=== PATIENT | female | born 2005 ===

== ENCOUNTER 2024-02-27 14:48 | Emergency (ER) | payer OTHER, SELFPAY ==
[2024-02-27 15:25] VITALS: BP 117/86; PULSE 114; RESP 16; TEMP 36.7; O2SAT 99
--- NOTE | 2024-02-27 16:29 | ED.URI ---
HPI - URI/Sore Throat General Chief Complaint: Upper Respiratory Infection Stated Complaint: Cough/Nausea/Ear Pain Time Seen by Provider: 02/27/24 16:18 Source: patient and RN notes reviewed Mode of arrival: ambulatory Limitations: no limitations History of Present Illness HPI Narrative: Mother presents with patient today complaining of headache, productive cough, fatigue, rhinorrhea. Symptoms began a few days ago. Denies fever, shortness of breath. Currently rates her pain 4/10 and has been taking Advil with minimal relief. Patient finished course of Augmentin approximately 1 week ago for sinusitis. Related Data Home Medications ?Medication ?Instructions ?Recorded ?Confirmed ?Last Taken ?Type duloxetine 30 mg capsule,delayed 30 mg PO DAILY 02/27/24 02/27/24 Unknown History release serdexmethylphenidate 52.3 1 tablet PO ONCE 02/27/24 02/27/24 Unknown History mg-dexmethylphenidate 10.4 mg capsule (Azstarys) tirzepatide 5 mg/0.5 mL 5 mg subcut WEEKLY 02/27/24 02/27/24 Unknown History subcutaneous pen injector (Mounjaro) Allergies Allergy/AdvReac Type Severity Reaction Status Date / Time No Known Allergies Allergy Verified 02/27/24 15:23 Review of Systems Review of Systems: CONSTITUTIONAL: Denies body aches, fever, chills, or sweats.+ fatigue EYES: Denies visual changes, redness, or discharge. ENT: Denies congestion, sore throat, or otalgia.+ rhinorrhea CARDIOVASCULAR: Denies chest pain, palpitations, or edema. RESPIRATORY: Denies dyspnea.+ cough GASTROINTESTINAL: Denies abdominal pain, nausea, vomiting, or diarrhea. GENITOURINARY: Denies dysuria or hematuria. SKIN: Denies rash, itching, or wounds. MUSCULOSKELETAL: Denies back pain, joint pain, or myalgia. NEUROLOGIC: Denies numbness, tingling, or weakness.+ headache PSYCH: Denies depression or anxiety. PMFSH Comments At time of signature, I have reviewed and agree with nursing past medical, surgical, social and family history unless otherwise noted. Please see nursing chart for further information. There is no relevant family history pertinent to the presenting complaint Exam Narrative: GENERAL: Mildly ill-appearing, well-nourished, and in no acute distress. HEAD: Normocephalic, atraumatic. EYES: EOMI. No redness or drainage. Conjunctivae normal. ENT: Mucous membranes pink and moist. Nares clear. + rhinorrhea. TMs normal bilaterally. Throat normal. Uvula midline. NECK: Normal AROM. Supple. No lymphadenopathy. CHEST: No respiratory distress. Clear to auscultation. HEART: Regular rate and rhythm. No murmur appreciated. EXTREMITIES: Normal range of motion. No edema. SKIN: Warm, dry, no rash. Capillary refill normal. Normal skin turgor. NEURO: No focal deficits. Alert and oriented x3. Gait steady. PSYCH: Normal affect. No signs of depression or anxiety. Course Course Level of Care: Express Care Visit Vital Signs Vital signs: Vital Signs Temperature 98.1 F 02/27/24 15:25 Pulse Rate 114 H 02/27/24 15:25 Respiratory Rate 16 02/27/24 15:25 Blood Pressure 117/86 02/27/24 15:25 Pulse Oximetry 99 02/27/24 15:25 Temperature 98.1 F 02/27/24 15:25 Pulse Rate 114 H 02/27/24 15:25 Respiratory Rate 16 02/27/24 15:25 Blood Pressure 117/86 02/27/24 15:25 Pulse Oximetry 99 02/27/24 15:25 Reviewed MDM - URI/Sore Throat MDM Narrative Medical decision making narrative: Patient declines testing for influenza or COVID-19. Symptoms likely viral in etiology. Discussed [id number] medication use and duration of illness. She declines prescription for Tessalon Perles. Anticipatory guidance given. Differential Diagnosis Differential diagnosis: Likely upper respiratory infection, otitis media, viral infection, influenza and other (COVID) Critical Care Time Critical Care Time Critical Care Time: No Discharge Plan Discharge Clinical Impression: Upper respiratory infection Qualifiers: URI type: unspecified URI Qualified Code(s): J06.9 - Acute upper respiratory infection, unspecified Patient Disposition: Home, Self-Care Condition: Stable Instructions: Upper Respiratory Infection (DC) Additional Instructions: Your symptoms are likely due to a viral illness, which is not treated with antibiotics. Virus symptoms can last for up to 7-10days. Take Tylenol or ibuprofen for pain or fever. You may consider an antihistamine such as Zyrtec, Claritin, or Berenice, or steroid nasal spray such as Flonase for your runny nose. Rest and stay hydrated. Follow up with your PCP in 7 days if symptoms are not improving. Go to the ER immediately if you develop shortness of breath, difficulty swallowing, or any other concerning symptoms. Your blood pressure was elevated above 120/80 today at Urgent Care. This puts you above the threshold for follow up. Please schedule a followup visit with your personal physician as soon as possible, for further evaluation and treatment. Even blood pressure exceeding 120/80 may indicate pre-hypertension. Patient Language: [place]an Prescriptions: No Action duloxetine 30 mg capsule,delayed release(DR/EC) 30 mg PO DAILY Mounjaro 5 mg/0.5 mL pen injector 5 mg subcut WEEKLY Azstarys 52.3 mg- 10.4 mg capsule 1 tablet PO ONCE Follow-up/Referrals: PHYSICIAN,PHOTOENGRAVING HELPER [Primary Care Provider] - Time of Disposition: 16:33
== END 2024-02-27 16:40 | disposition home or self-care (01) ==
PROVIDERS: Emergency Provider Nurse Practitioner
DX: J06.9 Acute upper respiratory infection, unspecified (principal); Z79.899 Other long term (current) drug therapy
CPT/HCPCS: 99213; G0463